=== PATIENT | male | born 1980 | race Caucasian/White ===

== ENCOUNTER 2021-02-15 13:54 | Outpatient (CLI) | payer OTHER, SELFPAY ==
[2021-02-15 18:15] LABS: SARS-CoV-2 Ag Negative (Negative)
== END 2021-02-15 13:55 | disposition home or self-care (01) ==
LOC: CHSLAB 13:57
PROVIDERS: PCP Family Medicine; Visit Provider Nurse Practitioner
DX: Z20.822 Contact with and (suspected) exposure to COVID-19 (principal)
CPT/HCPCS: 87426; C9803

== ENCOUNTER 2021-08-28 11:08 | Outpatient (CLI) | payer OTHER, SELFPAY ==
[2021-08-28 11:38] LABS: Anion Gap 5 mmol/L (8-16); Blood Urea Nitrogen 12 mg/dL (7-18); Calcium 8.9 mg/dL (8.5-10.1); Carbon Dioxide 28 mmol/L (21-32); Chloride 103 mmol/L (98-108); Estimated Glomerular Filt Rate > 60; Glucose 111 mg/dL (70-99); Osmolality Calculated 282 mOsm/kg (285-295); Potassium 4.2 mmol/L (3.5-5.1); Sodium 136 mmol/L (136-145)
== END 2021-08-28 11:09 | disposition home or self-care (01) ==
LOC: CHSLAB 11:12
PROVIDERS: PCP Family Medicine
DX: Z79.890 Hormone replacement therapy (principal)
CPT/HCPCS: 36415; 80048

== ENCOUNTER 2022-04-20 10:15 | Emergency (ER) | payer OTHER, SELFPAY ==
--- NOTE | ~2022-04-20 | CT_ITS ---
EXAMINATION: CT cervical spine wo con DATE: 04/20/2022 11:03 INDICATION: Neck pain. TECHNIQUE: Computed tomography (CT) of the cervical spine was performed without intravenous contrast. Automated exposure control and iterative reconstruction technique were employed. The dose-length pro duct was 529.48 mGy-cm. COMPARISON: None FINDINGS: There is mild emphysema. There is 6 degrees levocurvature of cervicothoracic spine. There i s mild chronic anterior wedging of multiple thoracic vertebral bodies. Intervertebral disc heights ar e normal in cervical spine. The following disc levels are specifically discussed: C2-C3: There is mild bilateral uncovertebral joint osteoarthritis. There is no facet joint osteoarthr itis. There is no neural foraminal stenosis. There is no central canal stenosis. C3-C4: There is mild left uncovertebral joint osteoarthritis. There is no facet joint osteoarthritis. There is no neural foraminal stenosis. There is no central canal stenosis. C4-C5: There is mild left uncovertebral joint osteoarthritis. There is mild bilateral facet joint ost eoarthritis. There is no neural foraminal stenosis. There is mild central canal stenosis. C5-C6: There is no uncovertebral joint osteoarthritis. There is no facet joint osteoarthritis. There is no neural foraminal stenosis. There is no central canal stenosis. C6-C7: There is no uncovertebral joint osteoarthritis. There is no facet joint osteoarthritis. There is no neural foraminal stenosis. There is no central canal stenosis. C7-T1: There is no uncovertebral joint osteoarthritis. There is severe right and moderate left facet joint osteoarthritis. There is mild right neural foraminal stenosis. There is no central canal stenos is. IMPRESSION: 1. Mild cervical spondylosis. Reviewed, dictated and finalized at location A. 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
--- NOTE | ~2022-04-20 | CT_ITS ---
EXAMINATION: CT brain wo con DATE: 04/20/2022 11:02 INDICATION: Numbness and tingling of the face. TECHNIQUE: Computed tomography (CT) of the head was performed without intravenous contrast. The mA wa s adjusted according to patient size. Iterative reconstruction technique was employed. The dose-lengt h product was 605.33 mGy-cm. COMPARISON: None FINDINGS: There is no intracranial hemorrhage, acute infarction, or abnormal intracranial mass lesion . The ventricles are normal in size. The orbits are normal. There is mild mucosal thickening in the p aranasal sinuses. The mastoid air cells are normal. IMPRESSION: 1. Normal brain. Reviewed, dictated and finalized at location A. 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 Normal brain.
[2022-04-20 10:20] VITALS: BP 141/99; PULSE 96; RESP 16; TEMP 37; O2SAT 97
[2022-04-20] MEDS: ALPRAZolam (*CRX) 0.5 MG TABLET PO (10:51)
[2022-04-20 10:56] LABS: Hematocrit 46.4 % (40.0-54.0); Hemoglobin 16.2 g/dL (14.0-18.0); Mean Corpuscular HGB Conc 34.9 g/dL (32.0-36.0); Mean Corpuscular Hemoglobin 31.8 pg (27.0-31.0); Mean Platelet Volume 8.9 fl (8.7-11.0); Platelet Count Result 287 K/mm3 (150-420); Red Cell Distribution Width 12.5 % (11.6-14.4)
[2022-04-20 10:58] LABS: White Blood Count 20.3 K/mm3 (4.8-10.8)
--- NOTE | 2022-04-20 10:58 | PC.NURSE ---
per lab critical WBC value 20.3 ERP aware
[2022-04-20 11:03] LABS: Band Neutrophils Percent 2 % (0-6); Eosinophils Percent Manual 1 % (1-6); Lymphocytes Absolute Manual 2.63 K/mm3 (1.1-4.5); Lymphocytes Percent Manual 13 % (18-44); Monocytes Percent Manual 3 % (3-9); Neutrophils Absolute Manual 16.84 K/mm3 (1.3-6.7); Neutrophils Percent Manual 81 % (46-73); Platelet Estimate Adequate (Adequate); Total Cells Counted 100
[2022-04-20 11:19] LABS: Alanine Aminotransferase 72 U/L (16-63); Albumin Level 4.6 g/dL (3.4-5.0); Alkaline Phosphatase 89 U/L (46-116); Anion Gap 8 mmol/L (8-16); Aspartate Amino Transferase 84 U/L (15-37); Bilirubin,Total 0.7 mg/dL (0.00-1.00); Blood Urea Nitrogen 19 mg/dL (7-18); Calcium 9.5 mg/dL (8.5-10.1); Carbon Dioxide 28 mmol/L (21-32); Chloride 101 mmol/L (98-108); Estimated CRCL calculation 94 ml/min; Estimated Glomerular Filt Rate > 60; Glucose 105 mg/dL (70-99); Osmolality Calculated 286 mOsm/kg (285-295); Potassium 4.3 mmol/L (3.5-5.1); Sodium 137 mmol/L (136-145); Total Protein 7.8 g/dL (6.4-8.2)
[2022-04-20 11:20] LABS: Creatine Kinase 1068 U/L (39-308); Thyroid Stimulating Hormone 1.38 uIU/mL (0.36-3.74)
[2022-04-20 11:27] LABS: Add Urine Microscopic? NO; Appearance Urine Clear (Clear); Bilirubin Urine Negative (Negative); Blood Urine Negative (Negative); Color Urine Light Yellow (Yellow); Glucose Urine UA Negative (Negative); Ketones Urine Negative (Negative); Leukocyte Esterase Ur Negative LEU/UL (Negative); Nitrate Urine Negative (Negative); Protein Urine Negative (Negative); Specific Grav Ur <= 1.005 (1.010-1.020); Urobilinogen Urine 0.2 mg/dL (0.2-1.0); pH Urine 6.5 (5.0-8.0)
--- NOTE | 2022-04-20 11:32 | ED.GENADULT ---
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 Patient has been having these spells for the last 3 days were she feels like there is numbness around her lips in her in her fingertips and her lower extremities although has good range of motion no neurological deficits no nausea vomiting no headache blurry vision no chest pain or shortness of breath no deficits and pain stimuli. 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 There is no fever chills no dysuria no flank pain no hematuria. Onset (ago): day(s) Location: face, upper extremity and lower extremity Radiation: non-radiation Severity: moderate Associated symptoms: denies other symptoms Related Data Home Medications Medication Instructions Recorded Confirmed atorvastatin 20 mg tablet 20 mg PO DAILY 04/20/22 04/20/22 estradiol 0.1 mg/24 hr semiweekly 1 patch topical [id number] 04/20/22 04/20/22 transdermal patch fluoxetine 20 mg capsule 20 mg PO DAILY 04/20/22 04/20/22 losartan 100 mg tablet 100 mg PO DAILY 04/20/22 04/20/22 naproxen 500 mg tablet 500 mg PO BID PRN Pain 04/20/22 04/20/22 progesterone micronized 100 mg 100 mg PO DAILY 04/20/22 04/20/22 capsule varenicline 1 mg tablet 1 mg PO BID 04/20/22 04/20/22 Allergies Allergy/AdvReac Type Severity Reaction Status Date / Time cyclobenzaprine Allergy Unknown Verified 04/20/22 10:31 Review of Systems Review of Systems: All systems reviewed & are unremarkable except as noted in HPI and below PMFSH Past Medical History Medical History Anxiety Exam Const: General: cooperative, healthy appearing, comfortable, no acute distress, well developed, alert, awake and Physically active Nutritional Appearance: average body habitus and well nourished Orientation/consciousness: oriented to person, oriented to place and oriented to time Limitations: no limitations HENMT: Head: normal to inspection and No palpable skull fracture present Ears: hearing grossly normal bilaterally Face/Nose/Sinus: Normal external nose present Face and sinus: sinuses nontender and face symmetric Mouth: Yes Normal oral and palatal mucosa present, Yes lip normal, Yes tongue normal, Yes Normal salivary glands and ducts present, Yes oropharynx normal and Yes moist mucous membranes Teeth and gingiva: dentition normal and gingiva normal Throat: posterior oropharynx normal Eyes: General: appearance normal, both eyes and all related structures Visual Norton: normal visual norton by confrontation Alignment and Position: alignment normal Eyelids: eyelids normal Conjunctivae: conjunctivae normal Sclera: sclerae normal Pupils: Equal, round and reactive pupils present EOM: EOMs intact bilaterally Direct Ophthalmoscopy: normal light reflex Neck: Neck: normal visual inspection, full ROM, no lymphadenopathy and no meningeal signs Chest: Chest palpation & inspection: normal inspection of the chest and normal palpation of entire chest wall Resp: Effort & Inspection: normal respiratory effort and able to speak in complete sentences Cardio: Jugular venous distension: no JVD Palpation: normal PMI Rate: regular rate Rhythm: regular rhythm GI: Inspection: normal to inspection Percussion: Yes normal to percussion Auscultation: normal bowel sounds : General: Yes bimanual renal exam normal bilaterally Urinary Catheter: Urinary Catheter: patent and draining Back/Spine/Pelvis: Back: no CVA tenderness Cervical Sp
[2022-04-20] MEDS: SODIUM CHLORIDE 0.9% IV 1,000 ML 999 ML IV CONT (11:37)
[2022-04-20 12:03] VITALS: BP 138/84; PULSE 84; RESP 16; TEMP 36.7; O2SAT 98
[2022-04-20 12:35] VITALS: BP 138/80; PULSE 82; RESP 16; TEMP 36.9; O2SAT 99
== END 2022-04-20 12:45 | disposition home or self-care (01) ==
PROVIDERS: Emergency Provider Emergency Medicine; PCP Nurse Practitioner
DX: R20.0 Anesthesia of skin (principal); F41.9 Anxiety disorder, unspecified; D21.9 Benign neoplasm of connective and other soft tissue, unspecified; Z79.890 Hormone replacement therapy; Z79.1 Long term (current) use of non-steroidal anti-inflammatories (NSAID)
CPT/HCPCS: 36415; 70450; 72125; 80053; 81003; 82550; 84443; 85025; 87040; 96360; 99284; A9270; J7030

== ENCOUNTER 2022-04-22 07:35 | Outpatient (RCR) | payer OTHER, SELFPAY ==
--- NOTE | 2022-04-22 09:24 | PTOPEVAL1 ---
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 Patient reports that pain started between the shoulder blades and now is radiating to B UE and through the entire spine. Patient also reports numbness in his face as well . X-rays were performed and found mild spondylosis . 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 Prior to last Friday patient was independent with no increase in pain. Reported Pain Level Pain Score 9: Self Report Assessment PT Clinical Summary Patient is a 41 year who presents to PT with back pain throughout entire spine. Patient demonstrates decreased B UE and LE strength and decreased LE flexibility impairing patient's ability to sleep, perform house hold tasks and care for child. Patient would benefit from skilled PT to address impairments and return to PLOF. Plan of Care Interventions Aquatic Therapy,Electrical Stimulation,Hot Pack/ Cold Pack,Manual Therapy,Mechanical Traction,Neuro Re-education,Patient/Caregiver Educati, Therapeutic Activities,Therapeutic Exercise,Self- Care/Home Management PT Services Indicated Yes Treatment Frequency and 2x weekly for 10 visits Duration These treatments will address the objective and functional deficits as defined above. The patient will be advanced safely and appropriately in order for the patient to progress towards his/her prior level of function. Additional exercises will be introduced and as well as a comprehensive home exercise program upon discharge, if needed, ?to ensure carryover of functional gains achieved in the clinic. This treatment plan has been reviewed and agreement upon by the patient.
--- NOTE | 2022-04-22 09:26 | PTOPEVAL1 ---
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 Patient reports that pain started between the shoulder blades and now is radiating to B UE and through the entire spine. Patient also reports numbness in his face as well . X-rays were performed and found mild spondylosis . 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 Prior to last Friday patient was independent with no increase in pain. Reported Pain Level Pain Score 9: Self Report Assessment PT Clinical Summary Patient is a 41 year who presents to PT with back pain throughout entire spine. Patient demonstrates decreased B UE and LE strength and decreased LE flexibility impairing patient's ability to sleep, perform house hold tasks and care for child. Patient would benefit from skilled PT to address impairments and return to PLOF. Plan of Care Interventions Electrical Stimulation,Gait Training,Hot Pack/Cold Pack,Manual Therapy,Mechanical Traction,Neuro Re- education,Patient/Caregiver Educati,Therapeutic Activities,Therapeutic Exercise,Self-Care/Home Management PT Services Indicated Yes Treatment Frequency and 2x weekly for 10 visits Duration These treatments will address the objective and functional deficits as defined above. The patient will be advanced safely and appropriately in order for the patient to progress towards his/her prior level of function. Additional exercises will be introduced and as well as a comprehensive home exercise program upon discharge, if needed, ?to ensure carryover of functional gains achieved in the clinic. This treatment plan has been reviewed and agreement upon by the patient.
--- NOTE | 2022-05-16 16:15 | PTOPREEVAL ---
Assessment and note entered by Nancy Norris DPT Evaluation Information Assessment Status Progress Diagnosis cervical and mid back pain Onset 04/13/22 Subjective Information Patient returns to PT today after hospital stay. Patient reports that on 04/26/22 they went to the ER after their numbness and tingling and weakness had progressed. They report that at the ER they did a spinal tap and treated them for Guillian Meally with IV treatments for 6 days before being transferred to [facility] for 8 days. They report since admission his tinlging has decreased, strength has improved and they now report back pain as discomfort. They report that balance is continuing to improve. 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 They would benefit from skilled PT to address impairments and return to [facility]. Plan of Care Interventions Electrical Stimulation,Gait Training,Hot Pack/Cold Pack,Manual Therapy,Mechanical Traction,Neuro Re- education,Patient/Caregiver Educati,Therapeutic Activities,Therapeutic Exercise,Self-Care/Home Management PT Services Indicated Yes Treatment Frequency and 2x weekly for 10 visits Duration These treatments will address the objective and functional deficits as defined above. The patient will be advanced safely and appropriately in order for the patient to progress towards his/her prior level of function. Additional exercises will be introduced and as well as a comprehensive home exercise program upon discharge, if needed, ?to ensure carryover of functional gains achieved in the clinic. This treatment plan has been reviewed and agreement upon by the patient.
--- NOTE | 2022-05-23 15:26 | BUOTOPEVAL ---
Assessment and note entered by Bekah Alcala OT Evaluation Information Assessment Status Evaluation Diagnosis decreased fine motor coordination Onset 04/13/22 Subjective Information Patient goes by Tommy. They report the following : Patient was sick with a virus in March followed by pain, numbness and tingling followed. They were inpatient for approximately 5 days and then rehab for approximately 8 days. Patient returned home on May 10. Patient states that she is doing much better and has not fell since returning home. 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 She is able to pulp cooker, do laundry and perforn all self care however reports that it is tiring to do so. Patient states that typing and handwriting are difficult secondary to weakness/fatigue. Patient is required to take notes as part of their job. Patient would like to return to driving. Patient has a follow up appointment with neurology on 05/27. Patient was previously independent with all IADLs, ADLs and primary caregiver of 5 year old. Reported Pain Level Pain Score 0: Self Report Pain Score 1: Self Report Pain Score 1: Self Report Pain Score 4: Self Report Pain Score 9: Self Report Additional Pain Score Comments patient has a history of chronic back pain Assessment OT Clinical Summary Patient is a 41 year old who presents to patient occupational therapy post Gullian-Butterfield Syndrome with concerns of fine motor fatigue and decreased coordination that are impacting his ability to perform his job and IADLs, specifically handwriting and typing. No visual or safety deficits are noted in this evaluation. ROM and strength of bilateral UE's are within normal limits and at/near baseline. No deficits that would impact driving were observed at this time however patient is recommended to discuss with doctor for release. Skilled OT services are recommended 1x/week for faciltiation of fine motor coordination and speed as well as provide education and home programming so that they are able to return to prior level of function. Plan of Care Interventions
--- NOTE | 2022-06-11 15:17 | PTOPPROGNS ---
Assessment and note entered by Nancy Norris DPT Evaluation Information Assessment Status Re-evaluation Diagnosis cervical and mid back pain Onset 04/13/22 Subjective Information Patient reports they continue to improve. They report strength and balance has improved but reports that endurance has not yet returned to PLOF. They report no pain Assessment PT Clinical Summary Patient has been seen for 10 treatments from -06/11/22. They are making good progress towards goals with improved balance and strength. They report that they are improving towards PLOF. [place] will continue out current POC at this time to return to PLOF. Plan of Care Interventions Electrical Stimulation,Gait Training,Hot Pack/Cold Pack,Manual Therapy,Mechanical Traction,Neuro Re- education,Patient/Caregiver Educati,Therapeutic Activities,Therapeutic Exercise,Self-Care/Home Management PT Services Indicated Yes Treatment Frequency and continue with current POC Duration These treatments will address the objective and functional deficits as defined above. The patient will be advanced safely and appropriately in order for the patient to progress towards his/her prior level of function. Additional exercises will be introduced and as well as a comprehensive home exercise program upon discharge, if needed, ?to ensure carryover of functional gains achieved in the clinic. This treatment plan has been reviewed and agreement upon by the patient.
--- NOTE | 2022-06-17 14:43 | PTOPDC ---
Assessment and note entered by Nancy Norris DPT Evaluation Information Assessment Status Re-evaluation Diagnosis cervical and mid back pain Onset 04/13/22 Subjective Information Patient reports no pain. They reports that they feel that their strength and balance have both improved. They report that endurance continues to be a deficit but they report they are going to get a gym membership to continue with exercise program. Reported Pain Level Pain Score 0: Self Report Assessment PT Clinical Summary Patient made great progress in skilled PT. They demonstrated functional and objective improvements with goals partially met. They report that they continue to fatigue quickly but strength and balance are greatly improved. They are independent with HEP and will be discharged at this time. Plan of Care PT Services Indicated No
== END 2022-06-17 15:42 | disposition home or self-care (01) ==
LOC: CHSPT 07:35
PROVIDERS: Visit Provider Nurse Practitioner
DX: M54.50 Low back pain, unspecified (principal); M54.6 Pain in thoracic spine; R20.0 Anesthesia of skin
CPT/HCPCS: 97110; 97112; 97161; 97165; 97530

== ENCOUNTER 2022-07-17 10:25 | Outpatient (CLI) | payer OTHER, SELFPAY ==
[2022-07-17 12:16] LABS: Alanine Aminotransferase 34 U/L (16-63); Albumin Level 4.4 g/dL (3.4-5.0); Alkaline Phosphatase 88 U/L (46-116); Anion Gap 11 mmol/L (8-16); Aspartate Amino Transferase 32 U/L (15-37); Bilirubin,Total 0.5 mg/dL (0.00-1.00); Blood Urea Nitrogen 14 mg/dL (7-18); Calcium 9.5 mg/dL (8.5-10.1); Carbon Dioxide 25 mmol/L (21-32); Chloride 103 mmol/L (98-108); Estimated Glomerular Filt Rate > 60; Glucose 97 mg/dL (70-99); Osmolality Calculated 288 mOsm/kg (285-295); Potassium 4.3 mmol/L (3.5-5.1); Sodium 139 mmol/L (136-145); Total Protein 7.6 g/dL (6.4-8.2)
[2022-07-17 12:30] LABS: Thyroid Stimulating Hormone Reflex 2.45 u/IU/mL (0.36-3.74)
[2022-07-21 10:48] LABS: Testosterone Total 52 ng/dL (250-1100)
[2022-07-26 22:53] LABS: Estradiol, Ultrasensitive 51 pg/mL (< OR = 29)
== END 2022-07-17 10:26 | disposition home or self-care (01) ==
PROVIDERS: PCP Family Medicine
DX: I10 Essential (primary) hypertension (principal); F64.9 Gender identity disorder, unspecified; Z78.9 Other specified health status; R53.83 Other fatigue
CPT/HCPCS: 36415; 80053; 82670; 84403; 84443

== ENCOUNTER 2022-07-29 16:00 | Emergency (ER) | payer OTHER, SELFPAY ==
--- NOTE | ~2022-07-29 | CT_ITS ---
EXAMINATION: CT abdomen pelvis w con DATE: 07/29/2022 17:21 INDICATION: LLQ/groin pain TECHNIQUE: Computed tomography (CT) of the abdomen and pelvis was performed with 100 mL Omnipaque-350 intravenous contrast. Automated exposure control and iterative reconstruction technique were employe d. The dose-length product was 406.31 mGy-cm. COMPARISON: None. FINDINGS: Lower thorax: Bibasilar scar/atelectasis Liver: Normal. Biliary/Gallbladder: Gallbladder is normal. No bile duct dilation. Pancreas: No mass or duct dilation. Spleen: Normal. Adrenals:No mass. Kidneys: No mass, stone, or hydronephrosis. GI tract: No small or large bowel dilation. Normal appendix. Mesentery/Peritoneum: No ascites, mass, or free air. Retroperitoneum: No mass. Pelvis: Marked urinary bladder distention, without wall thickening. Remaining pelvic organs are tasha l. Soft Tissues: Soft tissues and body wall unremarkable. Bones: No acute osseous finding. IMPRESSION: Marked urinary bladder distention, correlate for findings of urinary retention. Otherwise negative CT abdomen and pelvis findings. Reviewed, dictated and finalized at location K.
[2022-07-29 16:00] VITALS: BP 137/84; PULSE 74; RESP 16; TEMP 36.6; O2SAT 99
--- NOTE | 2022-07-29 16:24 | ED.GENADULT ---
HPI - General Adult General Chief complaint: Urogenital-Male Stated complaint: Left sided groin pain Time Seen by Provider: 07/29/22 16:12 History of Present Illness HPI narrative: Tommy is a transgender woman preoperative with a PMH of Guillian Pepperell HTN and HLD that presented to the ED with pain in the left groin that started last night after intercourse. There is no diarrhea, N/V, trauma, CP, or dyspnea. He cannot identify and aggravating or alleviating factors. Related Data Home Medications Medication Instructions Recorded Confirmed atorvastatin 20 mg tablet 20 mg PO DAILY 04/20/22 07/29/22 estradiol 0.1 mg/24 hr semiweekly 1 patch topical [id number] 04/20/22 07/29/22 transdermal patch fluoxetine 20 mg capsule 20 mg PO DAILY 04/20/22 07/29/22 losartan 100 mg tablet 100 mg PO DAILY 04/20/22 07/29/22 naproxen 500 mg tablet 500 mg PO BID PRN Pain 04/20/22 07/29/22 progesterone micronized 100 mg 100 mg PO DAILY 04/20/22 07/29/22 capsule aspirin 81 mg tablet,delayed 81 mg PO DAILY 07/29/22 07/29/22 release loratadine 10 mg tablet 10 mg PO DAILY 07/29/22 07/29/22 spironolactone 100 mg tablet 100 mg PO DAILY 07/29/22 07/29/22 Allergies Allergy/AdvReac Type Severity Reaction Status Date / Time cyclobenzaprine Allergy Rash Verified 07/29/22 16:19 Review of Systems Review of Systems: All systems reviewed & are unremarkable except as noted in HPI and below PMFSH Past Medical History Medical History Anxiety Exam Const: General: healthy appearing and no acute distress Nutritional Appearance: well nourished Orientation/consciousness: patient oriented x3 HENMT: Head: normal to inspection Ears: external ears normal Face/Nose/Sinus: Normal external nose present Eyes: Conjunctivae: conjunctivae normal Pupils: Equal, round and reactive pupils present EOM: EOMs intact bilaterally Neck: Neck: normal visual inspection Chest: Chest palpation & inspection: normal inspection of the chest Resp: Effort & Inspection: normal respiratory effort Cardio: Rate: regular rate GI: Inspection: non-distended GI Palp: Yes Tenderness to palpation present (GI) (LLQ and inguinal region ), No Guarding due to palpation present (GI), No Rigid due to palpation, No Palpable mass present and No Rebound tenderness present Skin: General skin exam: normal color Rashes: no rashes Wounds: no wounds Neuro: General: patient oriented x3 and moves all extremities Cranial nerves: Yes Nystagmus not present Speech: normal speech Extrem: General: normal to inspection Psych: Mental Status: mental status grossly normal Course Course Emergency Course: Ordered labs and CT Labs largely unremarkable EXAMINATION: CT abdomen pelvis w con DATE: 07/29/2022 17:21 INDICATION: LLQ/groin pain TECHNIQUE: Computed tomography (CT) of the abdomen and pelvis was performed with 100 mL Omnipaque-350 intravenous contrast. Automated exposure control and iterative reconstruction technique were employed. The dose-length product was 406.31 mGy-cm. COMPARISON: None. FINDINGS: Lower thorax: Bibasilar scar/atelectasis Liver: Normal.? Biliary/Gallbladder: Gallbladder is normal. No bile duct dilation. Pancreas: No mass or duct dilation. Spleen: Normal. Adrenals:No mass. Kidneys: No mass, stone, or hydronephrosis. GI tract: No small or large bowel dilation. Normal appendix. Mesentery/Peritoneum: No ascites, mass, or free air. Retroperitoneum: No mass. Pelvis: Marked urinary bladder distention, without wall thickening. Remaining pelvic organs are normal. Soft Tissues: Soft tissues and body wall unremarkable. Bones:? No acute osseous finding. IMPRESSION: Marked urinary bladder distention, correlate for findings of urinary retention. Otherwise negative CT abdomen and pelvis findings. Tommy did urinate after the CT and post void residual volume was 12 ml. Vital Signs Vital signs: Vital
[2022-07-29 16:45] LABS: Basophils Absolute Auto 0.06 K/mm3 (0.00-0.10); Basophils Percent Auto 0.7 % (0.0-1.0); Eosinophils Absolute Auto 0.28 K/mm3 (0.02-0.50); Eosinophils Percent Auto 3.1 % (1.0-6.0); Hematocrit 41.5 % (40.0-54.0); Hemoglobin 14.4 g/dL (14.0-18.0); Immature Granulocyte Absolute 0.05 K/mm3 (0.00-0.00); Immature Granulocyte Percent A 0.6 % (0.0-0.0); Lymphocytes Absolute Auto 1.27 K/mm3 (1.10-4.50); Lymphocytes Percent Auto 14.2 % (18.0-42.0); Mean Corpuscular HGB Conc 34.7 g/dL (32.0-36.0); Mean Corpuscular Hemoglobin 31.9 pg (27.0-31.0); Mean Corpuscular Volume 91.8 fL (78.0-102.0); Monocytes Absolute Auto 0.72 K/mm3 (0.10-0.90); Monocytes Percent Auto 8.1 % (2.0-11.0); Neutrophils Absolute Auto 6.5 K/mm3 (1.7-7.2); Neutrophils Percent Auto 73.3 % (50.0-70.0); Platelet Count Result 241 K/mm3 (150-420); Red Blood Count 4.52 M/mm3 (4.70-6.10); Red Cell Distribution Width 12.7 % (11.6-14.4); White Blood Count 8.9 K/mm3 (4.8-10.8)
[2022-07-29 17:01] LABS: Alanine Aminotransferase 33 U/L (16-63); Albumin Level 4.1 g/dL (3.4-5.0); Alkaline Phosphatase 83 U/L (46-116); Anion Gap 13 mmol/L (8-16); Aspartate Amino Transferase 34 U/L (15-37); Bilirubin,Total 0.5 mg/dL (0.00-1.00); Blood Urea Nitrogen 12 mg/dL (7-18); Calcium 8.9 mg/dL (8.5-10.1); Carbon Dioxide 27 mmol/L (21-32); Chloride 97 mmol/L (98-108); Estimated Glomerular Filt Rate > 60; Glucose 101 mg/dL (70-99); Lipase 33 U/L (16-77); Osmolality Calculated 283 mOsm/kg (285-295); Potassium 3.8 mmol/L (3.5-5.1); Sodium 137 mmol/L (136-145); Total Protein 7.4 g/dL (6.4-8.2)
--- NOTE | 2022-07-29 17:21 | PC.NURSE ---
PT IS IN CT AT THIS TIME. WILL CONTINUE TO MONITOR.
--- NOTE | 2022-07-29 17:29 | PC.NURSE ---
PT IS AWAITING CT RESULTS, VOIDED WHILE IN CT AND NONE WAS COLLECTED, TO AWAIT URINE SPECIMEN. PT DENIES ANY NEEDS OR COMPLAINTS. WILL CONTINUE TO MONITOR.
[2022-07-29 18:09] VITALS: BP 118/73; PULSE 68; RESP 18; O2SAT 98
== END 2022-07-29 18:05 | disposition home or self-care (01) ==
PROVIDERS: Emergency Provider Family Medicine; PCP Family Medicine
DX: R10.32 Left lower quadrant pain (principal); F41.9 Anxiety disorder, unspecified; Z79.82 Long term (current) use of aspirin; Z79.1 Long term (current) use of non-steroidal anti-inflammatories (NSAID)
CPT/HCPCS: 36415; 74177; 80053; 83690; 85025; 99284; Q9967

== ENCOUNTER 2022-08-02 07:25 | Outpatient (CLI) | payer OTHER, SELFPAY ==
--- NOTE | ~2022-08-02 | US_ITS ---
US scrotum doppler INDICATION: Left testicular pain for 5 days TECHNIQUE: Testicular sonogram utilizing grayscale and color Doppler FINDINGS: The testes are normal in size and appearance. No focal lesions are seen. There is testicul ar microlithiasis. The right testes measures 4 x 2 x 2.9 cm centimeters, and the left testis measures 3.2 x 2.7 x 1.7 cm cm. There is normal vascular flow to both testes. The right and left epididymides appear normal. There is a left varicocele. IMPRESSION: 1. Left varicocele. 2: Testicular microlithiasis. Reviewed, dictated and finalized at location []
== END 2022-08-02 07:26 | disposition home or self-care (01) ==
LOC: CHSIMG 07:27
PROVIDERS: PCP Nurse Practitioner; Visit Provider Physician Assistant
DX: N50.812 Left testicular pain (principal); I86.1 Scrotal varices; N50.89 Other specified disorders of the male genital organs
CPT/HCPCS: 76870; 93976

== ENCOUNTER 2024-03-05 15:42 | Outpatient (CLI) | payer OTHER, SELFPAY ==
[2024-03-05 16:35] LABS: Alanine Aminotransferase 35 U/L (16-63); Albumin Level 4.1 g/dL (3.4-5.0); Alkaline Phosphatase 85 U/L (46-116); Anion Gap 11 mmol/L (4-12); Aspartate Amino Transferase 22 U/L (15-37); Bilirubin,Total 0.4 mg/dL (0.00-1.00); Blood Urea Nitrogen 14 mg/dL (7-18); Calcium 9.2 mg/dL (8.5-10.1); Carbon Dioxide 27 mmol/L (21-32); Chloride 102 mmol/L (98-108); Cholesterol 158 mg/dL (0-200); Estimated Glomerular Filt Rate > 60; Glucose 110 mg/dL (70-99); HDL Direct 57 mg/dL (40-60); LDL Cholesterol Calculated 67 mg/dL (<130); Osmolality Calculated 291 mOsm/kg (285-295); Potassium 4.2 mmol/L (3.5-5.1); Sodium 140 mmol/L (136-145); Total Protein 6.7 g/dL (6.4-8.2); Triglycerides 170 mg/dL (0-150)
== END 2024-03-05 15:43 | disposition home or self-care (01) ==
PROVIDERS: PCP Family Medicine
DX: E78.00 Pure hypercholesterolemia, unspecified (principal); I10 Essential (primary) hypertension; Z79.890 Hormone replacement therapy; F64.9 Gender identity disorder, unspecified; Z79.899 Other long term (current) drug therapy
CPT/HCPCS: 36415; 80053; 80061; 82670; 84403